=== PATIENT | male | born 1985 | race Hispanic/Latino ===

== ENCOUNTER 2018-09-14 13:50 | Emergency (ER) | payer OTHER ==
[2018-09-14 13:59] VITALS: BMI 28.2
[2018-09-14 14:05] VITALS: RESP 18
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
[2018-09-14 16:02] VITALS: BP 139/79; PULSE 89; TEMP 98; O2SAT 96
--- NOTE | 2018-09-14 16:15 | RAD ---
Date of service: 09/14/2018 PROCEDURE: Cervical Spine Radiographs. HISTORY: Pain. COMPARISON: None. FINDINGS: BONES: Alignment maintained. No fracture. Dens Intact. DISC SPACES: Normal. SOFT TISSUES: Normal. No prevertebral soft tissue swelling. OTHER FINDINGS: None. IMPRESSION: Normal cervical spine radiographs
== END 2018-09-14 16:43 | disposition home or self-care (01) ==
LOC: ED 13:50
DX: S13.4XXA Sprain of ligaments of cervical spine, initial encounter (principal); V49.9XXA Car occupant (driver) (passenger) injured in unspecified traffic accident, initial encounter